=== PATIENT | female | born 1945 | race Caucasian/White ===

== ENCOUNTER 2019-06-24 14:48 | Inpatient (IN) | payer MEDICARE, MEDICAID, SELFPAY ==
[2019-06-24] VITALS (10 sets, daily range): BP systolic 103–135; BP diastolic 65–88; PULSE 63–78; RESP 18–22; TEMP 36.3–36.8; O2SAT 87–98; BMI 22.4; BMI 22.9
--- NOTE | 2019-06-24 14:56 | EKG12_ITS ---
Test Reason : SOB Blood Pressure : / mmHG Vent. Rate : 067 BPM Atrial Rate : 067 BPM P-R Int : 206 ms QRS Dur : 152 ms QT Int : 472 ms P-R-T Axes : 038 -21 150 degrees QTc Int : 498 ms Normal sinus rhythm Left bundle branch block Abnormal ECG Confirmed by CONNIE MCGHEE, GEETHA ([id number]), features editor MATHIEU HARO ([id number]) on 06/28/2019 2:20:56 PM Referred By: HERB Confirmed By:KEISHA ROSALES MD
--- NOTE | 2019-06-24 15:00 | ED.VIS.GEN ---
History of Present Illness Chief Complaint: Shortness of Breath Informant: Bilingual Inside Sales Representative, [facility] Narrative: Patient transferred via EMS from [facility]. There have been multiple positive coronavirus patients at [place]. Patient was reportedly tested and they are expecting results sometime today. Patient had increased shortness of breath. Nurse practitioner advised patient's O2 sats were in the low 80s and she had cyanosis noted around her lips. Patient has history of dementia at baseline. At the group home she was refusing all interventions including oxygen or further vital signs. Primary doctor for the group home was contacted and they were advised that the patient transferred to the emergency room where ethics committee of the hospital could help make decisions. Patient reportedly has no known family. There is no DURABLE POWER OF BURNER MACHINE OPERATOR, although group home has applied to have someone assigned. - Past Medical History (1) Dementia Status: Chronic (2) High cholesterol Status: Chronic (3) Hypertension Status: Chronic (4) Ischemic heart disease Status: Chronic (5) Peripheral vascular disease Status: Chronic (6) Depression Status: Chronic (7) Muscular dystrophy Status: Chronic (8) Congestive heart failure Status: Chronic (9) GERD (gastroesophageal reflux disease) Status: Chronic Past Medical History - Allergies and Home Meds Allergies/Adverse Reactions: Allergies diclofenac [Diclofenac] Allergy (Verified 06/24/19 14:59) Rash lisinopril Allergy (Verified 06/24/19 14:59) Other metoprolol Allergy (Verified 06/24/19 14:59) Other Primary Care Physician: Len Alvarado MD [Primary Care Provider] - Lives: Detention Smoking Status: Never smoker Review of Systems ROS: Unable to Obtain - Patient with history of dementia. A&O x1 at baseline and at present. Physical Exam Vital Signs/Narrative: Vital Signs Temp Pulse Resp BP Pulse Ox 06/24/19 14:51 98.3 F 78 22 H 119/70 87 Inital Vital Signs reviewed: Yes General: - - Thin and slightly pale Head: Normocephalic ENT: Moist mucous membranes Cardiovascular: Regular rate, Regular rhythm Respiratory: No distress, - - Slightly diminished. No wheezing noted. Abdomen: Soft, Nontender Extremities: Nontender Skin: Pallor Neurological: - - Alert and oriented x1. Moving all 4 extremities. Patient does not understand concept of advanced directives. She is pulling her oxygen off. Diagnostic/Tx/Re-eval Impressions Chest X-Ray 06/24/19 15:30 IMPRESSION: Patchy right lower lobe infiltrate suspicious for small focus of pneumonia. Electronically Signed: Yue Comer MD at 15:54 EDT Tel , Service support , 06/24/19 15:30 Chest 1 View (Portable) [RAD] Stat Laboratory Results 06/24/19 06/24/19 15:10 15:10 WBC 6.1 RBC 4.69 Hgb 14.0 Hct 46.4 MCV 98.9 MCH 29.9 MCHC 30.2 L RDW Std Deviation 49.4 H RDW Coeff of Juan C 13.6 Plt Count 201 MPV 9.7 Immature Gran % (Auto) 0.300 Neut % (Auto) 70.9 H Lymph % (Auto) 20.3 Gilliam % (Auto) 8.1 Eos % (Auto) 0.2 Baso % (Auto) 0.2 Absolute Neuts (auto) 4.3 Absolute Lymphs (auto) 1.23 Nucleated RBC % 0 Sodium 143 Potassium 4.7 Chloride 110 H Carbon Dioxide 28.0 Anion Gap 5 BUN 16 Creatinine 0.71 Estim Creat Clear Calc 36.53 Est GFR (MDRD) Af Amer 104 Est GFR (MDRD) Non-Af 86 BUN/Creatinine Ratio 22.6 H Glucose 112 H Calcium 9.2 Total Bilirubin 0.30 Direct Bilirubin < 0.05 AST 66 H ALT 31 Alkaline Phosphatase 97 Troponin I 0.041 Total Protein 7.1 Albumin 2.7 L Globulin 4.4 H - EKG Initial EKG Interpretation: Sinus Rhythm - Sinus at 67 with left bundle branch block. - Medical Decision Making Patient initially allowed us to place a nonrebreather mask. With this her O2 sats were in the high 90s. As nursing staff was getting blood work patient kept pulling off the mask. Oxygen saturations have maintained between 87% and 92% on room air. Patient is in no distress at this time. I spoke with incident command shortly to the patient's arrival who called risk management. There was a recent ethics team put together, however I am advised that this is more for allocation of resources as opposed to whether to use aggressive treatment versus conservative treatment. Patient has multiple comorbidities and likely would not do well being liberated from a ventilator. She is not able to understand to make this decision. There is no family, no power of deputy attorney general, and no guardian available. Myself along with 2 additional ER physicians and the certified dental assistant, along with the group home physician all feel that intubating this patient would not be in her best interest. We will provide supportive care with oxygen. Patient will be treated with Rocephin and Zithromax. I have filled out a new DNR comfort care arrest form. Addendum: While patient was in the emergency room awaiting work-up, phone call was received from the health department stay the patient did test positive for coronavirus. ED Disposition - Plan for ED Patient: Disposition: Acute Care Hospital [facility] Diagnosis: Coronavirus infection Referrals: Len Alvarado MD [Primary Care Provider] -
[2019-06-24 15:25] LABS: Absolute Lymphocyte Count 1.23 X10^3/uL (0.83-4.51); Absolute Neutrophil Count 4.3 X10^3/uL (2.0-7.7); Basophil# 0.01 X10^3/uL; Basophil% 0.2 % (0-1); Eosinophil# 0.01 X10^3/uL; Eosinophils% 0.2 % (0-5); Hematocrit 46.4 % (37-47); Lymphocyte # 1.23 X10^3/ul (4.0); Lymphocyte % 20.3 % (19-41); Mean Corp Hgb Conc 30.2 g/dL (32-36); Mean Corpuscular Hgb 29.9 pg (27.0-32.0); Mean Corpuscular Volume 98.9 fL (81-99); Mean Platelet Vol. 9.7 fl (6.2-12.0); Monocyte# 0.49 X10^3/uL; Monocyte% 8.1 % (0-10); NRBC Flagged by Analyzer 0 % (0-5); Neutrophil # 4.31 X10^3/uL (2.7-7.7); Neutrophil % 70.9 % (47-70); Platelet Count 201 K/mm3 (150-450); RBC Distribution Width CV 13.6 % (11.6-14.6); RBC Distribution Width SD 49.4 fl (35.1-43.9); Red Blood Count 4.69 M/mm3 (4.2-5.4); White Blood Count 6.1 K/mm3 (4.4-11.0)
--- NOTE | 2019-06-24 15:30 | RAD_ITS ---
STUDY: X-RAY CHEST REASON FOR EXAM: Female, 73 years old. Shortness of breath per [place], patient has dementia, poor historian TECHNIQUE: Single AP portable view of the chest. COMPARISON: October 05, 2013 chest x-ray FINDINGS: Postoperative change in the bilateral axilla or breast tissue. There is a patchy right lower lobe infiltrate. There is no demonstrated pleural abnormality. There is borderline cardiomegaly. Normal mediastinum and jan. Normal visualized pulmonary arteries. There is atherosclerotic tortuosity of the aortic arch and descending thoracic aorta. Normal visualized thoracic spine. Normal visualized ribs, clavicles, and shoulders. There is no demonstrated abnormality of the visualized soft tissue structures of the upper abdomen. RAD/Chest 1 View (Portable) IMPRESSION: Patchy right lower lobe infiltrate suspicious for small focus of pneumonia. Electronically Signed: Yue Comer MD at 15:54 EDT Tel , Service support ,
--- NOTE | 2019-06-24 15:40 | ED.RN ---
Pt confused and oriented to self only. Pt unable to follow commands without repeated reminders. Pt continuing to remove oxygen mask when encouraged to keep on. Per Antwan pt refused oxygen and vital signs prior to arrival. Pt has no POA and no family.
[2019-06-24 15:43] LABS: AST(SGOT) 66 U/L (15-37); Alanine Aminotransfer ALT/SGPT 31 U/L (13-56); Albumin, Serum 2.7 g/dL (3.2-5.0); Alkaline Phosphatase 97 U/L (45-117); Anion Gap 5 (5-15); BUN 16 mg/dL (7-18); BUN/Creat Ratio 22.6 RATIO (10-20); Bilirubin, Direct < 0.05 mg/dL (0.00-0.30); Calcium,Total 9.2 mg/dL (8.5-10.1); Chloride 110 mmol/L (98-107); Creatinine, Serum 0.71 mg/dL (0.55-1.02); EST Glomerular Filtration Rate 86 mL/min (>60); Est Glom Filt Rate - Afr Amer 104 mL/min (>60); Estimated Creatinine Clearance 36.53 ml/min; Globulin 4.4 g/dL (2.2-4.2); Glucose 112 mg/dL (74-106); Potassium 4.7 mmol/L (3.5-5.1); Protein, Total 7.1 g/dL (6.4-8.2); Sodium Level 143 mmol/L (136-145)
[2019-06-24] MEDS: Ceftriaxone 1 GM/50 ML BAG IV (16:18)
--- NOTE | 2019-06-24 17:06 | NURSING ---
med surg dyspnea, covid 19 paintsil
--- NOTE | 2019-06-24 17:09 | CM.ED ---
Social Work Consult: Discharge Planning Informant: Dr. Lee Patient with history of Dementia and is a poor historian. Per medical team patient is A&Ox1. Medical team informed by Antwan that patient does not have any family in place and is currently a Full Code. Antwan stating to be working towards guardianship for patient per nursing staff. Telephone call to Dulce Moncada. Dulce stating that patient has been a resident at [facility] since 2013. Dulce confirming that Antwan is working towards guardianship for patient. This social psychologist inquiring about Francisco that is listed on patient demographics sheet. Dulce stating that Francisco is patient friend and assist with managing patient finances. Dulce stating to not be sure about other details for patient and confirming that patient does not have any advanced directive in place at this time. Cornelia YANG, ANTONIO
--- NOTE | 2019-06-24 17:21 | PCM.HP.STD ---
Problem List (1) SARS-associated coronavirus infection Status: Acute (2) Dementia Status: Chronic Qualifiers: Dementia type: unspecified type (3) High cholesterol Status: Chronic (4) Hypertension Status: Chronic Qualifiers: Hypertension type: essential hypertension Qualified Code(s): I10 - Essential (primary) hypertension (5) Ischemic heart disease Status: Chronic (6) Peripheral vascular disease Status: Chronic (7) Depression Status: Chronic Qualifiers: Depression Type: unspecified Qualified Code(s): F32.9 - Major depressive disorder, single episode, unspecified (8) Congestive heart failure Status: Chronic Qualifiers: Heart failure type: unspecified Heart failure chronicity: chronic Qualified Code(s): I50.9 - Heart failure, unspecified (9) GERD (gastroesophageal reflux disease) Status: Chronic Qualifiers: Esophagitis presence: esophagitis presence not specified Qualified Code(s): K21.9 - Gastro-esophageal reflux disease without esophagitis History of Present Illness Date of Admission: 06/24/19 Chief Complaint: Shortness of breath since 06/22/19 The patient is a 73 year old F with hereditary progressive muscular dystrophy, h/o breast CA s/p bilateral mastectomies, hypertension, dementia who comes in with progressive shortness of breath that started on 06/22/19. Patient is resident in [facility]. Per [facility] staff, a court appointed guardianship process has been started and they believe they are weeks into obtaining that. Patient has progressively been short of breath, requiring the use of oxygen. She had an x-ray done on 06/22/19 that showed pneumonitis. She however has been progressively hypoxic and is demanding more nursing care. Patient was brought into the emergency room and was saturating 85% on nonrebreather mask. She was delirious and later on settled down, saturating 96% on 2 L of oxygen. A decision was made by the emergency room physician in consultation with 2 other physicians to make patient DNR CCA. Lab work done showed WBC count of 6.1, hemoglobin 14.3, platelet count 2 1, sodium 143, potassium 4.7, chloride 110, bicarbonate is 28, BUN 16, creatinine 0.71. Chest x-ray shows a patchy right lower lobe infiltrate suspicious for pneumonia. [facility] reported to the ED physician that patient is CO VID?19 positive. Admitting EKG showed left bundle branch block, ST segment elevation in the anterior leads(V1, V2, V3) with T wave inversions in the lateral leads. Past Medical History Past Medical History (Chronic Problems): Chronic Problems Dementia (Chronic) High cholesterol (Chronic) Hypertension (Chronic) Ischemic heart disease (Chronic) Peripheral vascular disease (Chronic) Depression (Chronic) Muscular dystrophy (Chronic) Congestive heart failure (Chronic) GERD (gastroesophageal reflux disease) (Chronic) Allergies diclofenac [Diclofenac] Allergy (Verified 06/24/19 14:59) Rash lisinopril Allergy (Verified 06/24/19 14:59) Other metoprolol Allergy (Verified 06/24/19 14:59) Other Home Medications: Ambulatory Orders Medication Instructions Recorded Aspirin E.C. [Ecotrin] 81 mg PO DAILY@0800 01/29/13 Losartan Potassium [Cozaar] 25 mg PO DAILY 01/29/13 Medroxyprogesterone Acetate 5 mg PO DAILY 01/29/13 [Provera] Multivitamins,Ther W-Minerals 1 tablet PO DAILY 01/29/13 [Multivitamin With Minerals ([facility])] Polyethylene Glycol 3350 [Miralax] 17 gm PO DAILY 01/29/13 Cholecalciferol (Vitamin D3) 2,000 unit PO DAILY 06/24/19 [Vitamin D3] Dicyclomine HCl 10 mg PO BID 06/24/19 Donepezil HCl [Aricept] 10 mg PO QHS 06/24/19 Levothyroxine Sodium [Synthroid] 25 mcg PO DAILY 06/24/19 Mirtazapine [Remeron] 15 mg PO QHS 06/24/19 Mouthwash Compounding Base 227 10 ml PO BID 06/24/19 [Mouthwash-Om] Paroxetine HCl 20 mg PO DAILY 06/24/19 Pravastatin Sodium 20 mg PO QHS 06/24/19 Surgical History: - - s/p coronary stenting Psychiatric History: Depression DIRECTORY OPERATOR History: No pertinent DIRECTORY OPERATOR history Lives: [facility] Smoking Status: Never smoker Tobacco Use: Non-smoker Alcohol: None Drugs: None - *Family History Maternal History Items: Unknown - unable to obtain as patient is confused Paternal History Items: Unknown - unable to obtain as patient is confused Review of Systems Unable to obtain accurate/complete ROS d/t: Cannot do ROS on account of confusion VTE Information - Inpt Only VTE Present on Admission: No VTE Pharm Prophylaxis ordered?: Yes Patient Problems: Active and Suspected Problems Coronavirus infection (Acute) SARS-associated coronavirus infection (Acute) - Physical Exam Vitals/I&O's: Vital Signs Temp Pulse Resp BP Pulse Ox 97.5 F L 63 22 H 120/73 98 06/24/19 17:03 06/24/19 17:03 06/24/19 17:03 06/24/19 17:03 06/24/19 17:03 Oxygen Flow Rate (L/min) 2 Oxygen Delivery Method Nasal Cannula Weight: 52.163 kg Body Mass Index (BMI) 22.4 Intake and Output for Last 24 Hours 06/22/19 06/23/19 06/24/19 23:59 23:59 23:59 Intake Total 50 / 50 Balance 50 / 50 General: Alert, Cooperative, Confused, - - in mild respiratory distress HEENT: Atraumatic, PERRLA, EOMI, Normocephalic Oral: Dry Mucosa Neck: Supple Lungs: Diminished, - - mild respiratory distress with minimal use of accessory muscles of respiration. On 2L oxygen Cardiovascular: Regular rate, Regular Rhythm, Normal S1, Normal S2, No murmurs Abdomen: Bowel Sounds Present, Soft, Non Tender, Non-Distended, No Hepato-splenomegaly Extremities: No edema Skin: No rashes Musculoskeletal: No Tenderness to Palpation of Joints or Extremities Lymphatic: No Cervical, Supraclavicular, or Inguinal Adenopathy Neurological: Cranial nerves II-XII grossly intact, Neuro grossly intact Psych/Mental Status: Normal Affect, Appropriate Laboratory Results 06/24/19 15:10: WBC 6.1, RBC 4.69, Hgb 14.0, Hct 46.4, MCV 98.9, MCH 29.9, MCHC 30.2 L, RDW Std Deviation 49.4 H, RDW Coeff of Juan C 13.6, Plt Count 201, MPV 9.7, Immature Gran % (Auto) 0.300, Neut % (Auto) 70.9 H, Lymph % (Auto) 20.3, Denali % (Auto) 8.1, Eos % (Auto) 0.2, Baso % (Auto) 0.2, Absolute Neuts (auto) 4.3, Absolute Lymphs (auto) 1.23, Nucleated RBC % 0 06/24/19 15:10: Sodium 143, Potassium 4.7, Chloride 110 H, Carbon Dioxide 28.0, Anion Gap 5, BUN 16, Creatinine 0.71, Estim Creat Clear Calc 36.53, Est GFR (MDRD) Af Amer 104, Est GFR (MDRD) Non-Af 86, BUN/Creatinine Ratio 22.6 H, Glucose 112 H, Calcium 9.2, Total Bilirubin 0.30, Direct Bilirubin < 0.05, AST 66 H, ALT 31, Alkaline Phosphatase 97, Troponin I 0.041, Total Protein 7.1, Albumin 2.7 L, Globulin 4.4 H Assessment/Plan All Active Problems Coronavirus infection (Acute) SARS-associated coronavirus infection (Acute) 73 year old F with hereditary progressive muscular dystrophy, h/o breast CA s/p bilateral mastectomies, hypertension, dementia who comes in with progressive shortness of breath that started on 06/22/19. 1. Hypoxia secondary to pneumonia/COVID-19 infection, confirmed by [facility] Patient is currently on 2 L of oxygen, appears confused, history of underlining dementia Started on IV ceftriaxone and azithromycin; continue same We will continue on gentle IV fluids as patient shows signs of moderate dehydration Document Management Analyst consulted 2. Abnormal EKG, ST segment elevation in anterior leads, appears to be new initial troponin of 0.041, will repeat next troponin; if that is negative, would not recommend to pursue this further 3. Hereditary progressive muscular dystrophy, patient able to transfer at baseline from bed to wheelchair Will hold off on ordering PT and OT evaluations for now patient is being managed for acute COVID infection4. 4. Hypertension, controlled, continue on Losartan 5. H/o breast CA s/p bilateral mastectomies/dementia/hypothyroidism/depression, continue on Paxil and Remeron 6. DVT PPx- Lovenox SC 7. Code status - DNR-CCA, no intubation Patient was full code in the NH, and with a current COVID 19 infection with current comorbidities including progressive muscular dystrophy, patient's outcomes after aggressive CPR/intubation would not lead to quality of life. She however has no capacity to make medical decisions. I agree with emergent multiple physician evaluation and agreement on DNR CCA. I recommend an ethics consult whilst in the hospital. Patient is appropriate for palliative care/hospice. Social work will be consulted to follow-up on expedited court appointed guardian ship process. Inpatient E&M: 61157 Init Hosp L3
--- NOTE | 2019-06-24 17:53 | CM.ED ---
Social Work Telephone call to Francisco (listed on patient demographics as friend), introduced self and social services coordinator role. Francisco confirming to be a friend of patients and to be helping with finances for patient. Francisco stating that patient has no advanced care planning in place, including POA for finance. Francisco stating that patient does have family in [place], [place] and has a number of: [phone] and believes that this is patient niece. Francisco is not sure of a name and Francisco is stating to have only spoken with this family member once about a burial plot for patient. Francisco stating that patient arrangements have been set up. Francisco only updated that patient is in hospital, no further medical information was provided. Cornelia YANG, ANTONIO
--- NOTE | 2019-06-24 18:00 | CM.ED ---
Social Work Telephone call to [phone], patient family member per Francisco, no answer. Cornelia YANG, ANTONIO
--- NOTE | 2019-06-24 18:09 | CM.ED ---
Social Work Telephone call to [phone], second attempt. No answer. Cornelia YANG, ANTONIO
--- NOTE | 2019-06-24 18:37 | NURSING ---
Call placed to Antwan, asked to speak to nurse taking care of this patient. Fax number provided, ask facility to please fx over med list, and any pertinent information such as physician notes.
[2019-06-24] MEDS: 0.9% Normal Saline 1,000 ML 75 ML IV (19:09)
--- NOTE | 2019-06-24 19:29 | CM.ED ---
Social Work Telephone call to, . This social work manager introduced self as well as social work manager role. Sera Salvador confirming to be patient family member and stating to be patient cousin. Sera stating that patient and children are no longer living. Sera stating that patient aunt is living but in a long-term with Dementia. Sera stating that patient has two other cousins, with one other cousin living in [place], [place] and the third cousin living out of the area. Sera stating to have last visited patient in the Fall 2018 prior to Sera going to [place] for the winter. Sera stating that at that time patient did not know who Sera was and was confused. This social work manager updating Sera that patient has been admitted to the hospital and that medical doctors in the ED and at [place] have agreed that intubating patient at this time would not be in the patient's best interest and patient was made a DNRCC-A due to not having advanced directives or any known family. Sera stating to not be sure what patient wishes would be as patient never voiced wishes. Sera stating to be supportive of medical doctors decisions and stating she has no qualify of life when speaking about patient. Sera updated on patient current location in the hospital and provided with number for unit. Sera did ask if family would be able to visit, this social work manager educating Sera on COVID-[address]. Sera voicing understanding and aware that visitation is limited to special situations. Sera agreeable to contact information being added to patient chart. Updated registration on Sera's contact information, information added to chart. Telephone call to MS2, updated charge nurse on all above information. Social work to continue to follow as needed. Cornelia Roe MSW, ANTONIO
[2019-06-24] MEDS: Donepezil HCl 10 MG Tablet PO (20:57)
[2019-06-24] MEDS: Pravastatin 20 MG Tablet PO (20:57)
[2019-06-24] MEDS: Dicyclomine 10 MG Capsule PO (20:57)
[2019-06-24] MEDS: Mirtazapine 15 MG Tablet PO (20:57)
[2019-06-25 02:50] VITALS: BP 148/74; PULSE 87; RESP 17; TEMP 36.6; O2SAT 93
[2019-06-25 06:41] LABS: Absolute Lymphocyte Count 1.51 X10^3/uL (0.83-4.51); Absolute Neutrophil Count 2.5 X10^3/uL (2.0-7.7); Basophil# 0.02 X10^3/uL; Basophil% 0.4 % (0-1); Eosinophil# 0.01 X10^3/uL; Eosinophils% 0.2 % (0-5); Hematocrit 44.9 % (37-47); Hemoglobin 13.5 g/dL (12.0-15.0); Lymphocyte # 1.51 X10^3/ul (4.0); Lymphocyte % 33.8 % (19-41); Mean Corp Hgb Conc 30.1 g/dL (32-36); Mean Corpuscular Hgb 29.9 pg (27.0-32.0); Mean Corpuscular Volume 99.6 fL (81-99); Mean Platelet Vol. 9.7 fl (6.2-12.0); Monocyte# 0.43 X10^3/uL; Monocyte% 9.6 % (0-10); NRBC Flagged by Analyzer 0 % (0-5); Neutrophil # 2.48 X10^3/uL (2.7-7.7); Neutrophil % 55.6 % (47-70); Platelet Count 199 K/mm3 (150-450); RBC Distribution Width CV 13.4 % (11.6-14.6); RBC Distribution Width SD 49.7 fl (35.1-43.9); Red Blood Count 4.51 M/mm3 (4.2-5.4); White Blood Count 4.5 K/mm3 (4.4-11.0)
[2019-06-25 07:00] LABS: ALB/GLOB Ratio 0.6 RATIO (0.9-2.4); AST(SGOT) 47 U/L (15-37); Alanine Aminotransfer ALT/SGPT 25 U/L (13-56); Albumin, Serum 2.3 g/dL (3.2-5.0); Alkaline Phosphatase 82 U/L (45-117); Anion Gap 3 (5-15); BUN 12 mg/dL (7-18); BUN/Creat Ratio 25.8 RATIO (10-20); Calcium,Total 8.6 mg/dL (8.5-10.1); Chloride 119 mmol/L (98-107); Creatinine, Serum 0.46 mg/dL (0.55-1.02); EST Glomerular Filtration Rate 140 mL/min (>60); Est Glom Filt Rate - Afr Amer 169 mL/min (>60); Estimated Creatinine Clearance 36.53 ml/min; Globulin 3.8 g/dL (2.2-4.2); Glucose 68 mg/dL (74-106); Protein, Total 6.1 g/dL (6.4-8.2); Sodium Level 149 mmol/L (136-145)
[2019-06-25 08:34] VITALS: BP 144/93; PULSE 69; RESP 16; TEMP 35.9; O2SAT 92
--- NOTE | 2019-06-25 08:37 | PN_ITS ---
Patient Problems: Active and Suspected Problems Coronavirus infection (Acute) SARS-associated coronavirus infection (Acute) Subjective: Chief complaint: Follow-up after admission for viral pneumonia due to COVID-19 infection, hypoxia and abnormal EKG. Patient seen and examined. No acute events overnight. She is confused and di soriented. She denied any chest pain or shortness of breath. She has been afebrile, blood pressure and heart rate are stable, pulse ox is 92% on room air. - Physical Exam Vitals/I&O's: Vital Signs Temp Pulse Resp BP Pulse Ox 96.6 F L 69 16 144/93 H 92 06/25/19 08:34 06/25/19 08:34 06/25/19 08:34 06/25/19 08:34 06/25/19 08:34 Oxygen Flow Rate (L/min) 2 Oxygen Delivery Method Room Air Weight: 115 lb 1.301 oz Body Mass Index (BMI) 22.9 Intake and Output for Last 24 Hours 06/23/19 06/24/19 06/25/19 23:59 23:59 23:59 Intake Total 707.5 / 707.5 461.25 / 461.25 Output Total 400 / 400 Balance 307.5 / 307.5 461.25 / 461.25 General: Alert, Cooperative, No apparent distress, Confused, Disoriented HEENT: Atraumatic, PERRLA, EOMI, Normocephalic Oral: Moist Mucosa, No Gingival or Mucosal Lesions/ Ulcerations Neck: Supple, No JVD, Negative Carotid Bruits, Trachea Midline, Thyroid Normal Size and Texture Lungs: Clear to auscultation, No rhonchi, No wheeze, No rales, Diminished, - - Decreased breath sounds bilateral, otherwise clear. Cardiovascular: Regular rate, Regular Rhythm, Normal S1, Normal S2, PMI Normal Abdomen: Bowel Sounds Present, Soft, Non Tender, Non-Distended, No Hepato- splenomegaly Extremities: No clubbing, No cyanosis, No edema Skin: No rashes, No breakdown Lymphatic: No Cervical, Supraclavicular, or Inguinal Adenopathy Neurological: Cranial nerves II-XII grossly intact, Neuro grossly intact Psych/Mental Status: Appropriate, Flat Affect Laboratory Results 06/24/19 15:10: WBC 6.1, RBC 4.69, Hgb 14.0, Hct 46.4, MCV 98.9, MCH 29.9, MCHC 30.2 L, RDW Std Deviation 49.4 H, RDW Coeff of Juan C 13.6, Plt Count 201, MPV 9.7, Immature Gran % (Auto) 0.300, Neut % (Auto) 70.9 H, Lymph % (Auto) 20.3, [place] % (Auto) 8.1, Eos % (Auto) 0.2, Baso % (Auto) 0.2, Absolute Neuts (auto) 4.3, Absolute Lymphs (auto) 1.23, Nucleated RBC % 0 06/24/19 15:10: Sodium 143, Potassium 4.7, Chloride 110 H, Carbon Dioxide 28.0, Anion Gap 5, BUN 16, Creatinine 0.71, Estim Creat Clear Calc 36.53, Est GFR (MDRD) Af Amer 104, Est GFR (MDRD) Non-Af 86, BUN/Creatinine Ratio 22.6 H, Glucose 112 H, Calcium 9.2, Total Bilirubin 0.30, Direct Bilirubin < 0.05, AST 66 H, ALT 31, Alkaline Phosphatase 97, Troponin I 0.041, Total Protein 7.1, Albumin 2.7 L, Globulin 4.4 H 06/24/19 21:00: Troponin I 0.037 06/25/19 06:30: WBC 4.5, RBC 4.51, Hgb 13.5, Hct 44.9, MCV 99.6 H, MCH 29.9, MCHC 30.1 L, RDW Std Deviation 49.7 H, RDW Coeff of Juan C 13.4, Plt Count 199, MPV 9.7, Immature Gran % (Auto) 0.400, Neut % (Auto) 55.6, Lymph % (Auto) 33.8, [place] % (Auto) 9.6, Eos % (Auto) 0.2, Baso % (Auto) 0.4, Absolute Neuts (auto) 2.5, Absolute Lymphs (auto) 1.51, Nucleated RBC % 0 06/25/19 06:30: Sodium 149 H, Potassium 4.0, Chloride 119 H, Carbon Dioxide 27.0, Anion Gap 3 L, BUN 12, Creatinine 0.46 L, Estim Creat Clear Calc 36.53, Est GFR (MDRD) Af Amer 169, Est GFR (MDRD) Non-Af 140, BUN/Creatinine Ratio 25.8 H, Glucose 68 L, Calcium 8.6, Total Bilirubin 0.20, AST 47 H, ALT 25, Alkaline Phosphatase 82, Total Protein 6.1 L, Albumin 2.3 L, Globulin 3.8, Albumin/Globulin Ratio 0.6 L Clinical Impression(s) from Imaging Studies Chest X-Ray 06/24/19 15:30 IMPRESSION: Patchy right lower lobe infiltrate suspicious for small focus of pneumonia. Electronically Signed: Yue Comer MD at 15:54 EDT Tel , Service support , Current Medications Acetaminophen (Tylenol) 650 mg PO Q6H PRN PRN PRN Reason: Pain Score 1-10/Temp > 100.7 F Aspirin (Ecotrin) 81 mg PO DAILY@0800 [facility] Cholecalciferol (Vitamin D (25mcg)) [facility] Dicyclomine HCl (Bentyl) 10 mg PO BID [facility] Last Admin: 06/24/19 20:57 Dose: 10 mg Documented by: Donepezil HCl (Aricept) 10 mg PO QHS [facility] Last Admin: 06/24/19 20:57 Dose: 10 mg Documented by: Enoxaparin Sodium (Lovenox) 40 mg SC DAILY [facility] Ceftriaxone Sodium (Rocephin) 1 gm in 50 mls @ 100 mls/hr IV Q24 [facility] Azithromycin 500 mg/ Dextrose 255 mls @ 250 mls/hr IV Q24 [facility] Sodium Chloride () 250 mls @ 15 mls/hr IV .[id number] PRN PRN Reason: Saline Flush Sodium Chloride () 250 mls @ 15 mls/hr IV .[id number] PRN PRN Reason: Additional IVPB Infusion Levothyroxine Sodium (Synthroid) 25 mcg PO DAILY [facility] Losartan Potassium (Cozaar) 25 mg PO DAILY [facility] Medroxyprogesterone Acetate (Cycrin,Provera) 5 mg PO DAILY [facility] Stop: 07/03/19 10:01 Medroxyprogesterone Acetate (Cycrin,Provera) 5 mg PO DAILY [facility] Stop: 08/02/19 10:01 Mirtazapine (Remeron) 15 mg PO QHS [facility] Last Admin: 06/24/19 20:57 Dose: 15 mg Documented by: Multivitamins/Minerals (Multivitamin With Minerals (Bkc)) 1 tablet PO DAILYCM [facility] Ondansetron HCl (Zofran) 4 mg IV Q8H PRN PRN PRN Reason: NAUSEA/VOMITING Paroxetine HCl (Paxil) 20 mg PO DAILY [facility] Polyethylene Glycol (Miralax) 17 gm PO DAILY [facility] Pravastatin Sodium (Pravachol) 20 mg PO QHS [facility] Last Admin: 06/24/19 20:57 Dose: 20 mg Documented by: Sodium Chloride () 10 - 40 ml IV UD PRN PRN Reason: SALINE FLUSH Medical Necessity - Tobacco Use Smoking Status: Never smoker Tobacco Use: Non-smoker Assessment/Plan All Active Problems Coronavirus infection (Acute) SARS-associated coronavirus infection (Acute) This is a 73 years old female patient was sent from the intermediate because of shortness of breath, found to have patchy right lower lobe infiltrate due to viral pneumonia secondary to COVID-19 infection and also found to have abnormal EKG. #1 acute right viral pneumonia due to COVID-19 infection: Chest x-ray reviewed. She is on IV Rocephin and Zithromax. She has been afebrile, no leukocytosis. Other vital signs are stable. Blood cultures pending. COVID-19 testing came back positive. Repeat routine blood work from today reviewed, unremarkable. Plan to continue same treatment. #2 hypoxia: Due to #1. On admission, she required up to 2 L and this morning, she is on room air. She denies any shortness of breath at this time. Plan as above. #3 abnormal EKG: EKG revealed minimal ST elevation in leads V1, V2 and V3 as well as LBBB. Patient denied any chest pain. Troponin negative x2. EKG from 2013 reviewed, revealed LBBB, minimal ST elevation on lateral chest leads which seemed to be rate related. Because of the current situation and circumstances, I do not think this patient will need any further cardiac work-up. #4 dementia: Patient is confused and disoriented at baseline. Continue Aricept. #5 hypertension: Blood pressure stable, continue losartan. #6 hypothyroidism: Continue levothyroxine. #7 hereditary progressive muscular dystrophy: She is able to transfer from bed to wheelchair at baseline. #8 history of breast cancer: Status post bilateral mastectomy: Stable, in remission. #9 depression: Continue Paxil and Remeron. #10 CODE STATUS: Patient has no family, no guarding and no power of real estate attorney. She lives at the intermediate with history of dementia and she is confused and disoriented at baseline. At this time, she is not able to take any decision. Based on her past medical history of multiple medical comorbidities including progressive muscular dystrophy and based on the current circumstances of COVID- 19 infection, this patient's outcome and prognosis in case she needed CPR or intubation would end up with poor quality of life. At this time, she is not capable of making a decision. I agree with the other physicians who evaluated the patient that this patient should be DNR CCA. We will get a consult from the ethics committee while she is in the hospital. #11 DVT prophylaxis: Subcu Lovenox. This note was generated with [employer] dictation software. It may contain incorrect words, spelling, and punctuation that were not noted in checking the note before signing. Inpatient E&M: 91156 Subs Hosp L2
[2019-06-25] MEDS: 0.9% Normal Saline 1,000 ML 75 ML IV (08:41)
[2019-06-25] MEDS: Multivitamins,Ther W-Minerals Tablet 1 TABLET PO (08:42)
[2019-06-25] MEDS: Aspirin E.C. 81 MG Tablet PO (08:42)
--- NOTE | 2019-06-25 09:54 | PCM.CONS.PUL ---
Problem List (1) Dementia Status: Chronic Qualifiers: Dementia type: unspecified type Dementia behavioral disturbance: without behavioral disturbance Qualified Code(s): F03.90 - Unspecified dementia without behavioral disturbance (2) High cholesterol Status: Chronic (3) Hypertension Status: Chronic Qualifiers: Hypertension type: essential hypertension Qualified Code(s): I10 - Essential (primary) hypertension (4) Ischemic heart disease Status: Chronic (5) Peripheral vascular disease Status: Chronic (6) Depression Status: Chronic Qualifiers: Depression Type: unspecified Qualified Code(s): F32.9 - Major depressive disorder, single episode, unspecified (7) Muscular dystrophy Status: Chronic (8) Congestive heart failure Status: Chronic Qualifiers: Heart failure type: unspecified Heart failure chronicity: chronic Qualified Code(s): I50.9 - Heart failure, unspecified (9) GERD (gastroesophageal reflux disease) Status: Chronic Qualifiers: Esophagitis presence: esophagitis presence not specified Qualified Code(s): K21.9 - Gastro-esophageal reflux disease without esophagitis (10) Coronavirus infection Status: Acute (11) SARS-associated coronavirus infection Status: Acute Reason for Consult Date of Consultation: 06/25/19 Reason for Consultation: Hypoxia History of Present Illness: The patient is a 73 year old F, with past medical history listed below, who presented to [facility] on 06/24/2019 secondary to hypoxia. Patient comes from [facility] where multiple positive patients have been found. Patient was noted to have increased shortness of breath and sats were in the low 80s. Patient also had some cyanosis and refused any interventions including supplemental oxygen. Patient had no known family or DURABLE POWER OF ENVIRONMENTAL TEST TECHNICIAN, so she was transported to the hospital for further evaluation. Patient is unable to provide any history given her baseline mental status. In the ER, patient was able to be placed on nonrebreather mask for a short period of time with saturations improving to the high 90s. After obtaining labs, patient remove the mask and saturations were 87 to 92% on room air. Patient did have intermittent desaturations while in the ER and there was discussion about possible intubation given unknown CODE STATUS. However, after discussion with multiple ER physicians and myself, it was deemed that she would not benefit from this therapy despite COVID 19+ status. Patient was admitted to the cohort floor to be monitored while social situation could be addressed. Patient was treated for community-acquired pneumonia as a chest x-ray did show an early infiltrate. After discussion with multiple physicians, patient was made DNR Comfort Care arrest without intubation. Patient is debilitated and sleeping comfortable on my evaluation this morning. Patient was not asking any questions or interacting. Patient was very resistant to physical exam and was unable to provide any review of systems. Patient did appear relatively comfortable with breathing until she became upset and then respiratory dynamics were not optimal. Patient did not answer if she was short of breath at that time. Past Medical History Past Medical History (Chronic Problems): Chronic Problems Dementia (Chronic) High cholesterol (Chronic) Hypertension (Chronic) Ischemic heart disease (Chronic) Peripheral vascular disease (Chronic) Depression (Chronic) Muscular dystrophy (Chronic) Congestive heart failure (Chronic) GERD (gastroesophageal reflux disease) (Chronic) Allergies diclofenac [Diclofenac] Allergy (Verified 06/24/19 14:59) Rash lisinopril Allergy (Verified 06/24/19 14:59) Other metoprolol Allergy (Verified 06/24/19 14:59) Other Home Medications: Ambulatory Orders Medication Instructions Recorded Aspirin E.C. [Ecotrin] 81 mg PO DAILY@0800 01/29/13 Losartan Potassium [Cozaar] 25 mg PO DAILY 01/29/13 Medroxyprogesterone Acetate 5 mg PO DAILY 01/29/13 [Provera] Multivitamins,Ther W-Minerals 1 tablet PO DAILY 01/29/13 [Multivitamin With Minerals ([facility])] Polyethylene Glycol 3350 [Miralax] 17 gm PO DAILY 01/29/13 Albuterol Sulfate [Ventolin Hfa] puff INHALATION Q3H PRN 06/24/19 Bisacodyl 1 supp RECTAL DAILY PRN 06/24/19 Cholecalciferol (Vitamin D3) 2,000 unit PO DAILY 06/24/19 [Vitamin D3] Dicyclomine HCl 10 mg PO BID 06/24/19 Donepezil HCl [Aricept] 10 mg PO QHS 06/24/19 Levothyroxine Sodium [Synthroid] 25 mcg PO DAILY 06/24/19 Loperamide HCl [Loperamide] 1 tab PO Q6H PRN PRN 06/24/19 Mirtazapine [Remeron] 15 mg PO QHS 06/24/19 Mouthwash Compounding Base 227 10 ml PO BID 06/24/19 [Mouthwash-Om] Paroxetine HCl 20 mg PO DAILY 06/24/19 Pravastatin Sodium 20 mg PO QHS 06/24/19 Surgical History: - - s/p coronary stenting Psychiatric History: Depression OPERATIONS ADMINISTRATOR History: No pertinent OPERATIONS ADMINISTRATOR history Lives: Long-Term Smoking Status: Never smoker Tobacco Use: Non-smoker Alcohol: None Drugs: None - *Family History Maternal History Items: Unknown - unable to obtain as patient is confused Paternal History Items: Unknown - unable to obtain as patient is confused Review of Systems Unable to obtain accurate/complete ROS d/t: Baseline mental status Patient Problems: Active and Suspected Problems Coronavirus infection (Acute) SARS-associated coronavirus infection (Acute) Objective: Chest x-ray was personally reviewed and shows an early patchy right lower lobe infiltrate. Patient has a previous EKG from 2012 showing a left bundle branch block with sinus tachycardia, but no other cardiac or pulmonary work-up has been completed at [facility]. - Physical Exam Vitals/I&O's: Vital Signs Temp Pulse Resp BP Pulse Ox 35.9 C L 69 16 144/93 H 92 06/25/19 08:34 06/25/19 08:34 06/25/19 08:34 06/25/19 08:34 06/25/19 08:34 Oxygen Flow Rate (L/min) 2 Oxygen Delivery Method Room Air Weight: 52.2 kg Body Mass Index (BMI) 22.9 Intake and Output for Last 24 Hours 06/23/19 06/24/19 06/25/19 23:59 23:59 23:59 Intake Total 707.5 / 707.5 673.75 / 673.75 Output Total 400 / 400 Balance 307.5 / 307.5 673.75 / 673.75 General: Alert, Confused, Disoriented, - - Appears older than stated age. Alopecia noted. HEENT: Atraumatic, PERRLA, EOMI, Normocephalic, - - No scleral icterus or injection noted Oral: Moist Mucosa Neck: Supple, No JVD, No Nodes, Trachea Midline Lungs: No rhonchi, No wheeze, No rales, Diminished, - - Fair cooperation with exam Cardiovascular: Regular rate, Regular Rhythm, Normal S1, Normal S2, No murmurs, No rub noted, No Gallop Abdomen: Bowel Sounds Present, Soft, Non Tender, Non-Distended Extremities: No clubbing, No cyanosis, No edema, Capillary Refill Less than 3 Seconds Skin: No rashes, No breakdown Musculoskeletal: No Tenderness to Palpation of Joints or Extremities Lymphatic: No Cervical, Supraclavicular, or Inguinal Adenopathy Neurological: Cranial nerves II-XII grossly intact - Pretty uncooperative with exam. Spontaneous movement of all extremities appreciated. Psych/Mental Status: Flat Affect, Impulsive Laboratory Results 06/24/19 15:10: WBC 6.1, RBC 4.69, Hgb 14.0, Hct 46.4, MCV 98.9, MCH 29.9, MCHC 30.2 L, RDW Std Deviation 49.4 H, RDW Coeff of Juan C 13.6, Plt Count 201, MPV 9.7, Immature Gran % (Auto) 0.300, Neut % (Auto) 70.9 H, Lymph % (Auto) 20.3, [place] % (Auto) 8.1, Eos % (Auto) 0.2, Baso % (Auto) 0.2, Absolute Neuts (auto) 4.3, Absolute Lymphs (auto) 1.23, Nucleated RBC % 0 06/24/19 15:10: Sodium 143, Potassium 4.7, Chloride 110 H, Carbon Dioxide 28.0, Anion Gap 5, BUN 16, Creatinine 0.71, Estim Creat Clear Calc 36.53, Est GFR (MDRD) Af Amer 104, Est GFR (MDRD) Non-Af 86, BUN/Creatinine Ratio 22.6 H, Glucose 112 H, Calcium 9.2, Total Bilirubin 0.30, Direct Bilirubin < 0.05, AST 66 H, ALT 31, Alkaline Phosphatase 97, Troponin I 0.041, Total Protein 7.1, Albumin 2.7 L, Globulin 4.4 H 06/24/19 21:00: Troponin I 0.037 06/25/19 06:30: WBC 4.5, RBC 4.51, Hgb 13.5, Hct 44.9, MCV 99.6 H, MCH 29.9, MCHC 30.1 L, RDW Std Deviation 49.7 H, RDW Coeff of Juan C 13.4, Plt Count 199, MPV 9.7, Immature Gran % (Auto) 0.400, Neut % (Auto) 55.6, Lymph % (Auto) 33.8, [place] % (Auto) 9.6, Eos % (Auto) 0.2, Baso % (Auto) 0.4, Absolute Neuts (auto) 2.5, Absolute Lymphs (auto) 1.51, Nucleated RBC % 0 06/25/19 06:30: Sodium 149 H, Potassium 4.0, Chloride 119 H, Carbon Dioxide 27.0, Anion Gap 3 L, BUN 12, Creatinine 0.46 L, Estim Creat Clear Calc 36.53, Est GFR (MDRD) Af Amer 169, Est GFR (MDRD) Non-Af 140, BUN/Creatinine Ratio 25.8 H, Glucose 68 L, Calcium 8.6, Total Bilirubin 0.20, AST 47 H, ALT 25, Alkaline Phosphatase 82, Total Protein 6.1 L, Albumin 2.3 L, Globulin 3.8, Albumin/Globulin Ratio 0.6 L Current Medications Acetaminophen (Tylenol) 650 mg PO Q6H PRN PRN PRN Reason: Pain Score 1-10/Temp > 100.7 F Aspirin (Ecotrin) 81 mg PO DAILY@0800 [facility] Last Admin: 06/25/19 08:42 Dose: 81 mg Documented by: Cholecalciferol (Vitamin D (25mcg)) 2,000 unit PO DAILYCM [facility] Last Admin: 06/25/19 08:42 Dose: 2,000 unit Documented by: Dicyclomine HCl (Bentyl) 10 mg PO BID [facility] Last Admin: 06/24/19 20:57 Dose: 10 mg Documented by: Donepezil HCl (Aricept) 10 mg PO QHS [facility] Last Admin: 06/24/19 20:57 Dose: 10 mg Documented by: Enoxaparin Sodium (Lovenox) 40 mg SC DAILY [facility] Ceftriaxone Sodium (Rocephin) 1 gm in 50 mls @ 100 mls/hr IV Q24 [facility] Azithromycin 500 mg/ Dextrose 255 mls @ 250 mls/hr IV Q24 [facility] Last Admin: 06/25/19 09:06 Dose: 250 mls/hr Documented by: Sodium Chloride () 250 mls @ 15 mls/hr IV .[id number] PRN PRN Reason: Saline Flush Sodium Chloride () 250 mls @ 15 mls/hr IV .[id number] PRN PRN Reason: Additional IVPB Infusion Levothyroxine Sodium (Synthroid) 25 mcg PO DAILY [facility] Losartan Potassium (Cozaar) 25 mg PO DAILY [facility] Medroxyprogesterone Acetate (Cycrin,Provera) 5 mg PO DAILY [facility] Stop: 07/03/19 10:01 Medroxyprogesterone Acetate (Cycrin,Provera) 5 mg PO DAILY [facility] Stop: 08/02/19 10:01 Mirtazapine (Remeron) 15 mg PO QHS [facility] Last Admin: 06/24/19 20:57 Dose: 15 mg Documented by: Multivitamins/Minerals (Multivitamin With Minerals ([facility])) [facility] Last Admin: 06/25/19 08:42 Dose: 1 tablet Documented by: Ondansetron HCl (Zofran) 4 mg IV Q8H PRN PRN PRN Reason: NAUSEA/VOMITING Paroxetine HCl (Paxil) 20 mg PO DAILY [facility] Polyethylene Glycol (Miralax) 17 gm PO DAILY [facility] Pravastatin Sodium (Pravachol) 20 mg PO QHS [facility] Last Admin: 06/24/19 20:57 Dose: 20 mg Documented by: Sodium Chloride () 10 - 40 ml IV UD PRN PRN Reason: SALINE FLUSH Clinical Impression(s) from Imaging Studies Chest X-Ray 06/24/19 15:30 IMPRESSION: Patchy right lower lobe infiltrate suspicious for small focus of pneumonia. Electronically Signed: Yue Comer MD at 15:54 EDT Tel , Service support , Assessment/Plan All Active Problems Coronavirus infection (Acute) SARS-associated coronavirus infection (Acute) RECOMMENDATIONS: 1. Empiric antibiotics for possible right lower lobe pneumonia 2. COVID 19 precautions 3. Supplemental oxygen as patient permits 4. Would not recommend Plaquenil at this time 5. Consider application for emergency guardianship IMPRESSIONS: 1. Acute hypoxic respiratory insufficiency secondary to COVID 19 Patient with an early infiltrate noted on chest x-ray with decreased oxygen saturations. Clinical suspicion for significant desaturation at the alf secondary to poor respiratory mechanics in the setting of COVID 19. Patient's mental status makes it difficult to provide supplemental oxygen. Reasonable to start empiric antibiotic therapy. Would discontinue IV fluids. Would not recommend Plaquenil therapy given relatively stable respiratory status. Given patient's comorbid conditions, it is my opinion that intubation is likely unethical. Patient unable to make decisions for self and has no guardian. Emergency guardianship should be initiated in my opinion. DNR Comfort Care arrest without intubation versus DNR comfort care only should be considered. 2. Abnormal EKG Clinical suspicion for artifact of ST elevation in the anterior leads. This is likely repolarization artifact. Troponins are being monitored. 3. Hypernatremia/hyperchloremia Likely secondary to volume resuscitation with normal saline. Would recommend discontinuation of IV fluids. Free water by mouth would be optimal for normalization. 4. Hereditary progressive muscular dystrophy/hypertension/history of breast cancer/dementia/hypothyroidism/depression Complicates care, management, recovery and prognosis. Okay to continue with baseline medications from my perspective. Patient's overall prognosis is extremely guarded without COVID 19. Recommend CODE STATUS of DNR Comfort Care arrest without intubation at a minimum and possible evaluation for hospice measures given patient's refusal for supplemental oxygen and other minimally invasive interventions. Inpatient E&M: 16807 Init Hosp L3
[2019-06-25] MEDS: Losartan Potassium 25 MG Tablet PO (10:39)
[2019-06-25] MEDS: Levothyroxine 25 MCG TABLET PO (10:39)
[2019-06-25] MEDS: Ceftriaxone 1 GM/50 ML BAG IV (10:39)
[2019-06-25] MEDS: Dicyclomine 10 MG Capsule PO ×2 (10:39→21:33)
[2019-06-25] MEDS: Paroxetine 20 MG Tablet PO (10:39)
[2019-06-25] MEDS: Polyethylene Glycol 3350 17 GM PACKET PO (10:39)
[2019-06-25] MEDS: Enoxaparin 40 MG/0.4 ML Syringe SC (10:40)
[2019-06-25 15:22] VITALS: BP 136/80; PULSE 68; RESP 18; TEMP 36.2; O2SAT 94
[2019-06-25 19:53] VITALS: BP 128/72; PULSE 84; RESP 16; TEMP 36.5; O2SAT 94
[2019-06-25 20:13] VITALS: PULSE 68
[2019-06-25] MEDS: Pravastatin 20 MG Tablet PO (21:33)
[2019-06-25] MEDS: Donepezil HCl 10 MG Tablet PO (21:33)
[2019-06-25] MEDS: Mirtazapine 15 MG Tablet PO (21:33)
[2019-06-26 02:30] VITALS: BP 132/88; PULSE 78; RESP 16; TEMP 36.5; O2SAT 92
[2019-06-26 02:43] VITALS: RESP 16; O2SAT 92
--- NOTE | 2019-06-26 07:39 | PN_ITS ---
Patient Problems: Active and Suspected Problems Coronavirus infection (Acute) SARS-associated coronavirus infection (Acute) Subjective: Patient did okay overnight. Patient has remained on room air. No fevers were reported. Patient is still not providing much feedback to questioning. - Physical Exam Vitals/I&O's: Vital Signs Temp Pulse Resp BP Pulse Ox 36.5 C L 78 16 132/88 H 92 06/26/19 02:30 06/26/19 02:30 06/26/19 02:43 06/26/19 02:30 06/26/19 02:43 Oxygen Flow Rate (L/min) 2 Oxygen Delivery Method Room Air Weight: 50.2 kg Body Mass Index (BMI) 22.9 Intake and Output for Last 24 Hours 06/24/19 06/25/19 06/26/19 23:59 23:59 23:59 Intake Total 707.5 / 707.5 1498.75 / 1498.75 Output Total 400 / 400 100 / 100 Balance 307.5 / 307.5 1498.75 / 1498.75 -100 / -100 General: No apparent distress, Confused, Disoriented, - - Alopecia. Appears older than stated age. HEENT: Atraumatic, PERRLA, EOMI, Normocephalic, - - No scleral icterus or injection noted Oral: Moist Mucosa, No Gingival or Mucosal Lesions/ Ulcerations Neck: Supple, No JVD, No Nodes, Trachea Midline Lungs: No rhonchi, No wheeze, No rales, Diminished, - - Symmetric expansion. Cardiovascular: Regular rate, Regular Rhythm, Normal S1, Normal S2, No murmurs, No rub noted, No Gallop Abdomen: Bowel Sounds Present, Soft, Non Tender, Non-Distended Extremities: No clubbing, No cyanosis, No edema, Capillary Refill Less than 3 Seconds Skin: No rashes, No breakdown Musculoskeletal: No Tenderness to Palpation of Joints or Extremities Lymphatic: No Cervical, Supraclavicular, or Inguinal Adenopathy Neurological: Cranial nerves II-XII grossly intact, Neuro grossly intact, Motor Exam 5/5 strength throughout Psych/Mental Status: Flat Affect Microbiology Past 72 Hours 06/24/19 14:55 Blood Culture (Wb) - Left Wrist Blood Culture - Preliminary No growth in 48 hours. 06/24/19 15:10 Blood Culture (Wb) - Anticubital Left Blood Culture - Preliminary No growth in 48 hours. Current Medications Acetaminophen (Tylenol) 650 mg PO Q6H PRN PRN PRN Reason: Pain Score 1-10/Temp > 100.7 F Aspirin (Ecotrin) 81 mg PO DAILY@0800 [facility] Last Admin: 06/25/19 08:42 Dose: 81 mg Documented by: Cholecalciferol (Vitamin D (25mcg)) 2,000 unit PO DAILYCM [facility] Last Admin: 06/25/19 08:42 Dose: 2,000 unit Documented by: Dicyclomine HCl (Bentyl) 10 mg PO BID [facility] Last Admin: 06/25/19 21:33 Dose: 10 mg Documented by: Donepezil HCl (Aricept) 10 mg PO QHS [facility] Last Admin: 06/25/19 21:33 Dose: 10 mg Documented by: Enoxaparin Sodium (Lovenox) 40 mg SC DAILY [facility] Last Admin: 06/25/19 10:40 Dose: 40 mg Documented by: Ceftriaxone Sodium (Rocephin) 1 gm in 50 mls @ 100 mls/hr IV Q24 [facility] Last Infusion: 06/25/19 11:10 Dose: Infused Documented by: Azithromycin 500 mg/ Dextrose 255 mls @ 250 mls/hr IV Q24 [facility] Last Infusion: 06/25/19 10:08 Dose: Infused Documented by: Sodium Chloride () 250 mls @ 15 mls/hr IV .[id number] PRN PRN Reason: Saline Flush Sodium Chloride () 250 mls @ 15 mls/hr IV .[id number] PRN PRN Reason: Additional IVPB Infusion Levothyroxine Sodium (Synthroid) 25 mcg PO DAILY [facility] Last Admin: 06/25/19 10:39 Dose: 25 mcg Documented by: Losartan Potassium (Cozaar) 25 mg PO DAILY [facility] Last Admin: 06/25/19 10:39 Dose: 25 mg Documented by: Medroxyprogesterone Acetate (Cycrin,Provera) 5 mg PO DAILY [facility] Stop: 07/03/19 10:01 Last Admin: 06/25/19 10:43 Dose: 5 mg Documented by: Medroxyprogesterone Acetate (Cycrin,Provera) 5 mg PO DAILY [facility] Stop: 08/02/19 10:01 Mirtazapine (Remeron) 15 mg PO QHS [facility] Last Admin: 06/25/19 21:33 Dose: 15 mg Documented by: Multivitamins/Minerals ([facility]itamin With [facility] ([facility])) [facility] Admin: 06/25/19 08:42 Dose: 1 tablet Documented by: Ondansetron HCl (Zofran) 4 mg IV Q8H PRN PRN PRN Reason: NAUSEA/VOMITING Paroxetine HCl (Paxil) 20 mg PO DAILY [facility] Last Admin: 06/25/19 10:39 Dose: 20 mg Documented by: Polyethylene Glycol (Miralax) 17 gm PO DAILY [facility] Last Admin: 06/25/19 10:39 Dose: 17 gm Documented by: Pravastatin Sodium (Pravachol) 20 mg PO QHS [facility] Last Admin: 06/25/19 21:33 Dose: 20 mg Documented by: Sodium Chloride () 10 - 40 ml IV UD PRN PRN Reason: SALINE FLUSH Medical Necessity - Tobacco Use Smoking Status: Never smoker Tobacco Use: Non-smoker Assessment/Plan All Active Problems Coronavirus infection (Acute) SARS-associated coronavirus infection (Acute) RECOMMENDATIONS: 1. Likely okay to discontinue antibiotics from my perspective 2. COVID 19 precautions 3. Supplemental oxygen as patient permits 4. Would not recommend Plaquenil at this time 5. Consider application for emergency guardianship 6. Hemodynamically stable on room air. Will sign off from a critical care/pulmonary perspective IMPRESSIONS: 1. Acute hypoxic respiratory insufficiency secondary to COVID 19 Patient with an early infiltrate noted on chest x-ray with decreased oxygen saturations. Clinical suspicion for significant desaturation at the custodial secondary to poor respiratory mechanics in the setting of COVID 19. Patient has not required supplemental oxygen since admission. Patient has not had any fever or leukocytosis, so it is likely okay to discontinue empiric antibiotic therapy. Given patient's comorbid conditions, it is my opinion that intubation is unethical. Patient unable to make decisions for self and has no guardian. Emergency guardianship should be initiated in my opinion. DNR Comfort Care arrest without intubation versus DNR comfort care only should be considered. 2. Abnormal EKG Clinical suspicion for artifact of ST elevation in the anterior leads. This is likely repolarization artifact. Troponins are being monitored. 3. Hypernatremia/hyperchloremia Likely secondary to volume resuscitation with normal saline. Would recommend discontinuation of IV fluids. Free water by mouth would be optimal for normalization. 4. Hereditary progressive muscular dystrophy/hypertension/history of breast cancer/dementia/hypothyroidism/depression Complicates care, management, recovery and prognosis. Okay to continue with baseline medications from my perspective. Patient's overall prognosis is extremely guarded without COVID 19. Recommend CODE STATUS of DNR Comfort Care arrest without intubation at a minimum and possible evaluation for hospice measures given patient's refusal for supplemental oxygen and other minimally invasive interventions. Inpatient E&M: 17383 Subs Hosp L2
[2019-06-26 07:57] VITALS: BP 120/58; PULSE 75; RESP 16; TEMP 36.2; O2SAT 93
[2019-06-26] MEDS: Enoxaparin 40 MG/0.4 ML Syringe SC (09:08)
[2019-06-26] MEDS: 0.9% Saline Lock 10 ML Syringe IV (09:08)
[2019-06-26] MEDS: Ceftriaxone 1 GM/50 ML BAG IV (09:08)
[2019-06-26] MEDS: Multivitamins,Ther W-Minerals Tablet 1 TABLET PO (09:09)
[2019-06-26] MEDS: Aspirin E.C. 81 MG Tablet PO (09:09)
[2019-06-26] MEDS: Losartan Potassium 25 MG Tablet PO (09:09)
[2019-06-26] MEDS: Dicyclomine 10 MG Capsule PO (09:09)
[2019-06-26] MEDS: Levothyroxine 25 MCG TABLET PO (09:09)
[2019-06-26] MEDS: Paroxetine 20 MG Tablet PO (09:10)
--- NOTE | 2019-06-26 09:59 | CASEMGMT ---
RN CM NOTE: Call received from Dr Henao. He states pt is medically ready to be discharged back to [facility] and inquiring if she can return today. Call placed to [facility] and spoke with MARIANO Richards. She was made aware pt is medically ready to be discharged today. She states pt can return to [facility] today. Dr Henao paged and returned call to this RN CM. He was made aware that pt can return to [facility] today. Call placed to JONH Damico director of front office and she was made aware of above and will have clerk secretary arrange for transportation back to [facility]. Semaj SHABAZZN RN CM
--- NOTE | 2019-06-26 10:44 | TREXTCAR_ITS ---
- Diet 06/24/19 17:50 Diet: Regular Diet Food consistency:: Regular Liquid Consistency:: Regular/Thin Diet Comments: softer food missing some bottom teeth - Routine Orders/Code Status [facility]: [facility] Suggestions for Active Care Change Position every (hours): 3 Hours to sit in a chair: 2 Times a day to sit in chair: 3 - Therapies Weight Bearing: Weight bearing as tolerated Physical Therapy: Eval and Treat Occupational Therapy: Eval and Treat Speech Therapy: Eval and Treat - Allergies/Procedures Done in Hospital Allergies/Adverse Reactions: Allergies diclofenac [Diclofenac] Allergy (Verified 06/24/19 14:59) Rash lisinopril Allergy (Verified 06/24/19 14:59) Other metoprolol Allergy (Verified 06/24/19 14:59) Other - Type of Care/Length of Stay Estimated LOS: More Than 30 Days Type of Care Needed: Skilled Rehab Potential: Fair Prognosis: Fair - Additional Orders/Day of Discharge Additional Orders: Continue quarantine to complete 2 weeks from onset of symptoms. H&P will serve as current which was dated: 06/24/19 Day of Discharge: 06/26/19 - Follow Up Care Primary Care Physician: Len Alvarado MD [Primary Care Provider] - Please follow up with your Primary Care Physician in: 1 WEEK.
--- NOTE | 2019-06-26 11:02 | DS.PCM_ITS ---
Discharge Date and Diagnosis - Problem List Patient Problems: Active and Suspected Problems Coronavirus infection (Acute) SARS-associated coronavirus infection (Acute) Date of Admission: 06/24/19 Date of Discharge: 06/26/19 - Primary Discharge Diagnosis Active and Suspected Problems #1 acute right viral pneumonia due to COVID-19 infection. #2 hypoxia, resolved. #3 abnormal EKG. - Secondary Discharge Diagnosis Chronic Problems Dementia (Chronic) High cholesterol (Chronic) Hypertension (Chronic) Ischemic heart disease (Chronic) Peripheral vascular disease (Chronic) Depression (Chronic) Muscular dystrophy (Chronic) Congestive heart failure (Chronic) GERD (gastroesophageal reflux disease) (Chronic) Hospital Course and Treatment Imaging Results: Clinical Impression(s) from Imaging Studies Chest X-Ray 06/24/19 15:30 IMPRESSION: Patchy right lower lobe infiltrate suspicious for small focus of pneumonia. Electronically Signed: Yue Comer MD at 15:54 EDT Tel , Service support , Dr. Oneil, pulmonology. Operations: None Procedures: None Summary of Care Provided: Patient seen and examined on the day of discharge and appeared to be stable to be [facility]. She remained confused and disoriented at her baseline. Denied any complaints. She remained afebrile, pulse ox is 93% on room air, blood pressure and heart rate are stable. The patient is a 73 year old F was [facility] because of shortness of breath and she was found to have patchy right lower lobe infiltrate secondary to viral pneumonia and she tested positive for COVID-19 infection. Her routine blood work was unremarkable, no leukocytosis. LFT also was unremarkable except for slightly elevated AST, otherwise normal. Patient was treated with IV Rocephin and Zithromax. She remained afebrile throughout the admission. Initially, she required oxygen at 2 L. With treatment, her symptoms improved and she was able to come off oxygen. Her pulse oximetry remained persistently above 92% on room air afterwards. Blood culture showed no growth in 48 hours. This patient with history of dementia, disoriented and confused at baseline and she is a [facility] patient. She has no family in the area apart from a cousin Sera who is not sure what are the patient wishes in terms of CODE STATUS. Patient does not have power of mergers and acquisitions attorney or guardianship. This patient's cousin Sera was contacted by the case management and she voices that she is supportive of the decision that was made by physicians in terms of CODE STATUS. She had a history of dementia, hypertension, hypothyroidism, history of breast cancer and progressive muscular dystrophy. Patient was evaluated by multiple physicians including ER physician, admitting physician, pulmonology and myself and all of us agreed that based on the current circumstances of COVID-19 infection and her past medical history, this patient's outcome and prognosis in case she needed CPR or intubation would end up with poor quality of life. DNR CCA order entered in the patient's chart. Patient remained stable, vital signs been stable and she remained on room air. I would recommend that patient should be seen by hospice and palliative care at the [facility]. Patient discharged back to the [facility] in a stable condition, discharged on Zithromax 500 mg p .o. daily for 3 days more to complete total of 5 days of treatment, instructed to complete quarantine for 2 weeks from onset of symptoms, recommended follow-up with PCP in 1 week. Patient Problems: Active and Suspected Problems Coronavirus infection (Acute) SARS-associated coronavirus infection (Acute) - Physical Exam Vitals/I&O's: Vital Signs Temp Pulse Resp BP Pulse Ox 97.1 F L 75 16 120/58 L 93 06/26/19 07:57 06/26/19 07:57 06/26/19 07:57 06/26/19 07:57 06/26/19 07:57 Oxygen Flow Rate (L/min) 2 Oxygen Delivery Method Room Air Weight: 110 lb 10.753 oz Body Mass Index (BMI) 22.9 Intake and Output for Last 24 Hours 06/24/19 06/25/19 06/26/19 23:59 23:59 23:59 Intake Total 707.5 / 707.5 1498.75 / 1498.75 50 / 50 Output Total 400 / 400 100 / 100 Balance 307.5 / 307.5 1498.75 / 1498.75 -50 / -50 General: Alert, Cooperative, No apparent distress, Confused, Disoriented HEENT: Atraumatic, PERRLA, EOMI, Normocephalic Oral: Moist Mucosa, No Gingival or Mucosal Lesions/ Ulcerations Neck: Supple, No JVD, Negative Carotid Bruits, Trachea Midline, Thyroid Normal Size and Texture Lungs: Clear to auscultation, No rhonchi, No wheeze, No rales, Diminished, Rales Cardiovascular: Regular rate, Regular Rhythm, Normal S1, Normal S2, PMI Normal Abdomen: Bowel Sounds Present, Soft, Non Tender, Non-Distended, No Hepato- splenomegaly Extremities: No clubbing, No cyanosis, No edema Skin: No rashes, No breakdown Lymphatic: No Cervical, Supraclavicular, or Inguinal Adenopathy Neurological: Cranial nerves II-XII grossly intact, Neuro grossly intact Psych/Mental Status: Appropriate, Flat Affect Microbiology Past 72 Hours 06/24/19 14:55 Blood Culture (Wb) - Left Wrist Blood Culture - Preliminary No growth in 48 hours. 06/24/19 15:10 Blood Culture (Wb) - Anticubital Left Blood Culture - Preliminary No growth in 48 hours. Current Medications Acetaminophen (Tylenol) 650 mg PO Q6H PRN PRN PRN Reason: Pain Score 1-10/Temp > 100.7 F Aspirin (Ecotrin) 81 mg PO DAILY@0800 [facility] Last Admin: 06/26/19 09:09 Dose: 81 mg Documented by: Cholecalciferol (Vitamin D (25mcg)) 2,000 unit PO DAILYCM [facility] Last Admin: 06/26/19 09:08 Dose: 2,000 unit Documented by: Dicyclomine HCl (Bentyl) 10 mg PO BID [facility] Last Admin: 06/26/19 09:09 Dose: 10 mg Documented by: Donepezil HCl (Aricept) 10 mg PO QHS [facility] Last Admin: 06/25/19 21:33 Dose: 10 mg Documented by: Enoxaparin Sodium (Lovenox) 40 mg SC DAILY [facility] Last Admin: 06/26/19 09:08 Dose: 40 mg Documented by: Ceftriaxone Sodium (Rocephin) 1 gm in 50 mls @ 100 mls/hr IV Q24 [facility] Last Infusion: 06/26/19 09:50 Dose: Infused Documented by: Azithromycin 500 mg/ Dextrose 255 mls @ 250 mls/hr IV Q24 [facility] Last Admin: 06/26/19 10:02 Dose: 250 mls/hr Documented by: Sodium Chloride () 250 mls @ 15 mls/hr IV .[id number] PRN PRN Reason: Saline Flush Sodium Chloride () 250 mls @ 15 mls/hr IV .[id number] PRN PRN Reason: Additional IVPB Infusion Levothyroxine Sodium (Synthroid) 25 mcg PO DAILY [facility] Last Admin: 06/26/19 09:09 Dose: 25 mcg Documented by: Losartan Potassium (Cozaar) 25 mg PO DAILY [facility] Last Admin: 06/26/19 09:09 Dose: 25 mg Documented by: Medroxyprogesterone Acetate (Cycrin,Provera) 5 mg PO DAILY [facility] Stop: 07/03/19 10:01 Last Admin: 06/26/19 09:09 Dose: 5 mg Documented by: Medroxyprogesterone Acetate (Cycrin,Provera) 5 mg PO DAILY [facility] Stop: 08/02/19 10:01 [facility] Admin: 06/25/19 21:33 Dose: 15 mg Documented by: Multivitamins/Minerals ([facility]ivitamin With Minerals (B[facility])) [facility] Last Admin: 06/26/19 09:09 Dose: 1 tablet Documented by: Ondansetron HCl (Zofran) 4 mg IV Q8H PRN PRN PRN Reason: NAUSEA/VOMITING Paroxetine HCl (Paxil) 20 mg PO DAILY [facility] Last Admin: 06/26/19 09:10 Dose: 20 mg Documented by: Polyethylene Glycol (Miralax) 17 gm PO DAILY [facility] Last Admin: 06/26/19 08:32 Dose: Not Given Documented by: Pravastatin Sodium (Pravachol) 20 mg PO QHS [facility] Last Admin: 06/25/19 21:33 Dose: 20 mg Documented by: Sodium Chloride () 10 - 40 ml IV UD PRN PRN Reason: SALINE FLUSH Last Admin: 06/26/19 09:08 Dose: 10 ml Documented by: Home Medications: Medications to take at Discharge Aspirin E.C. [Ecotrin] 81 mg PO DAILY@0800 01/29/13 Losartan Potassium [Cozaar] 25 mg PO DAILY 01/29/13 Medroxyprogesterone Acetate [Provera] 5 mg PO DAILY 01/29/13 Multivitamins,Ther W-Minerals [Multivitamin With Minerals (BKC)] 1 tablet PO DAILY 01/29/13 Polyethylene Glycol 3350 [Miralax] 17 gm PO DAILY 01/29/13 Albuterol Sulfate [Ventolin Hfa] puff INHALATION Q3H PRN 06/24/19 Bisacodyl 1 supp RECTAL DAILY PRN 06/24/19 Cholecalciferol (Vitamin D3) [Vitamin D3] 2,000 unit PO DAILY 06/24/19 Dicyclomine HCl 10 mg PO BID 06/24/19 Donepezil HCl [Aricept] 10 mg PO QHS 06/24/19 Levothyroxine Sodium [Synthroid] 25 mcg PO DAILY 06/24/19 Loperamide HCl [Loperamide] 1 tab PO Q6H PRN PRN 06/24/19 Mirtazapine [Remeron] 15 mg PO QHS 06/24/19 Mouthwash Compounding Base 227 [Mouthwash-Om] 10 ml PO BID 06/24/19 Paroxetine HCl 20 mg PO DAILY 06/24/19 Pravastatin Sodium 20 mg PO QHS 06/24/19 Azithromycin 500 mg PO DAILY #3 tab 06/26/19 Following Prescrptions Were Given to Patient: Azithromycin 500 mg PO DAILY #3 tab Prescription Printed Primary Care Physician: Len Alvarado MD [Primary Care Provider] - Please follow up with your Primary Care Physician in: 1 WEEK. Disposition: Alf facility Minutes spent on discharge:: 32 Patient Condition:: Stable Medical Necessity - Tobacco Use Smoking Status: Never smoker Tobacco Use: Non-smoker Meaningful Use Info Meaningful Use Diagnoses (Choose all that apply): None applicable Inpatient E&M: 73250 Disch Hosp
--- NOTE | 2019-06-26 13:22 | NURSING ---
[facility]
== END 2019-06-26 13:24 | disposition skilled nursing facility (03) | DRG 177 ==
LOC: ED 16:05 → MS2 17:22
PROVIDERS: Admitting Provider Internal Medicine; Emergency Provider Emergency Medicine; PCP Internal Medicine; Visit Provider Hospitalist
DX: U07.1 COVID-19 (principal); J12.89 Other viral pneumonia; E87.0 Hyperosmolality and hypernatremia; R09.02 Hypoxemia; R94.31 Abnormal electrocardiogram [ECG] [EKG]; E87.8 Other disorders of electrolyte and fluid balance, not elsewhere classified; E03.9 Hypothyroidism, unspecified; I44.7 Left bundle-branch block, unspecified; F03.90 Unspecified dementia, unspecified severity, without behavioral disturbance, psychotic disturbance, mood disturbance, and anxiety; E78.00 Pure hypercholesterolemia, unspecified; I73.9 Peripheral vascular disease, unspecified; F32.9 Major depressive disorder, single episode, unspecified; G71.00 Muscular dystrophy, unspecified; I11.0 Hypertensive heart disease with heart failure; I50.9 Heart failure, unspecified; G71.09 Other specified muscular dystrophies; K21.9 Gastro-esophageal reflux disease without esophagitis; Z79.82 Long term (current) use of aspirin; Z79.899 Other long term (current) drug therapy; Z66 Do not resuscitate; Z85.3 Personal history of malignant neoplasm of breast; Z95.5 Presence of coronary angioplasty implant and graft
CPT/HCPCS: 36415; 71045; 80048; 80053; 80076; 84484; 85025; 87040; 93005; 99285; J7030; J7050; A4216